=== PATIENT | female | born 1990 ===

== ENCOUNTER 2019-09-17 22:16 | Outpatient (AMB) | payer MEDICAID, SELFPAY ==
--- NOTE | 2019-09-17 22:53 | UCVISIT ---
Intake Ht./Wt. Decline/Exclusions Patient Declined Height and Weight this visit: No PT Meets exclusion criteria: No Vital Signs 09/17/19 22:54 09/17/19 23:32 Height 5 ft 5 in Height Method Measured Weight 80.456 kg Weight Measurement Method Standing Scale BMI 29.5 Temp 98.2 F Temp Source Oral Pulse 73 Pulse Source Monitor Respiration 16 16 BP 144/86 H Blood Pressure Source Automatic Cuff Blood Pressure Location Left Upper Arm Position Sitting Pulse Oximetry (%) 99 96 Oxygen Delivery Method Room Air Room Air Intake Zika Travel: No Been in contact w/anyone who has been Dx w/Zika Virus: No Been in contact w/anyone sick during travel outside country: No Patient >or equal to 18 years BMI outside of range 18.5-24.9: Yes Visit Reasons: UC Cough Primary Care Provider: Other,. Triage Triage Allergy / Med Rec Allergies sulfamethoxazole Allergy (Unknown, Verified 09/17/19 23:21) Rash PER [facility] trimethoprim Allergy (Unknown, Verified 09/17/19 23:21) Rash PER [facility] PMH Hx Congestive Heart Failure: No Hx Diabetes Mellitus Type 1: No Hx Diabetes Mellitus Type 2: No Hx Renal Disease: No Hx Chronic Obstructive Pulmonary Disease (COPD): No Past Medical History Reviewed and agree with Nursing documentation.: Yes Cardiac Medical History Hx Congestive Heart Failure: No Endocrine Medical History Hx Diabetes Mellitus Type 1: No Hx Diabetes Mellitus Type 2: No Genitourinary Medical History Hx Renal Disease: No Respiratory Medical History Hx COPD: No HPI Cough 29-year-old female presents to the urgent care today with complaints of a cough. Patient states is been going on since . Patient does report a history of hypertension patient denies any other associated symptoms or aggravating factors no other modifying factors patient does not appear any acute distress patient does report that she has been wheezing. Patient has no tachypnea speaks in full sentences without any difficulty. Pulmonary Results: No Data to Display Review of Systems (UC) Review of Systems All systems reviewed & no additional complaints except as documented Vital Signs: Reviewed and stable. Constitutional: No Weight Change, No Fever, No Chills, No Night Sweats, No Fatigue, No Malaise ENT/Mouth: No Hearing Changes, No Ear Pain, No Nasal Congestion, No Sinus Pain, No Hoarseness, No sore throat, No Rhinorrhea, No Swallowing Difficulty Eyes: No Eye Pain, No Swelling, No Redness, No Foreign Body, No Discharge, No Vision Changes Cardiovascular: No Chest Pain, No SOB, No PND, No Dyspnea on Exertion, No Orthopnea, No Claudication, No Edema, No Palpitations Respiratory: Cough, No Sputum, Wheezing, No Smoke Exposure Gastrointestinal: No Nausea, No Vomiting, No Diarrhea, No Constipation, No Pain, No Heartburn, No Anorexia, No Dysphagia, No Hematochezia, No Melena, No Flatulence, No Jaundice Genitourinary: No Dysmenorrhea, No DUB, No Dyspareunia, No Dysuria, No Urinary Frequency, No Hematuria, No Urinary Incontinence, No Urgency, No Flank Pain, No Urinary Flow Changes, No Hesitancy Musculoskeletal: No Arthralgias, No Myalgias, No Joint Swelling, No Joint Stiffness, No Back Pain, No Neck Pain, No Injury History Skin: No Skin Lesions, No Pruritis, No Hair Changes, No Breast/Skin Changes, No Nipple Discharge Neuro: No Weakness, No Numbness, No Paresthesia?s, No Loss of Consciousness, No Syncope, No Dizziness, No Headache, No Coordination Changes, No Recent Falls Psych: No Anxiety/Panic, No Depression, No Insomnia, No Personality Changes, No Delusions, No Rumination, No SI/HI/AH/VH, No Social Issues, No Memory Changes, No Violence/Abuse Hx., No Eating Concerns Heme/Lymph: No Bruising, No Bleeding, No Transfusions History, No Lymphadenopathy Endocrine: No Polyuria, No Polydipsia, No Temperature Intolerance Exam (UC) Limitations: no limitations General Appearance: alert, in no apparent distress, comfortable, cooperative, healthy appearing, well developed and well groomed Head exam: atraumatic, normocephalic and normal inspection Eye exam: Reports normal appearance and Reports EOMI ENT exam: Present normal exam, normal external ear exam, TM's normal bilaterally, normal oropharynx and mucous membranes moist Neck Exam: Present normal inspection, non-tender, trachea midline and supple Chest/Breast Exam: Present normal inspection and symmetric chest wall rise SPO2%: 99% SPO2 type: Room Air SPO2% Normal/Abnormal: Normal Respiratory exam: Present normal lung sounds bilaterally, normal respiratory effort, able to speak in complete sentences and clear to ascultation bilaterally Cardiovascular exam: Present regular rate and regular rhythm Abdominal Exam: Present non-tender, non-distended, normal bowel sounds and soft Extremities exam: normal inspection Back exam: Present normal inspection Neurological Exam: Present alert, awake and oriented X3 Psychiatric exam: Present normal affect and normal mood Skin exam: Present warm, dry, intact and normal color Office Procedures UC Airway Inhalation Treatment Respiration Respiratory Rate: 16 Respiratory Depth: Normal Respiratory Effort: Short of Breath Respiratory Pattern: Normal Oxygen Pulse Oximetry: 96 Oxygen Delivery Method: Room Air Breath Sounds Breath Sounds: Clear and Diminished Nebulizer Treatment Nebulizer Delivery Device: Mouthpiece Respiratory Treatment Tolerance: Excellent Post Treatment Aeration: Improved UC Level of Care Nursing/Assessment/Reassessment Patient Status: Established Patient Nursing Assessment/Reassessment: Triage Asessment, Initial Vital Signs, RN General Assessments and Oxygen Administration Coordination of Care: DC Instructions Simple 1-2 sets Miscellaneous Interventions: SVN Tx by ED staff Established Patient Charge Established Patient Point Assignment: 60 Established Patient Point Assignment: EP Level 2 (40-75) Procedures: Pulse Ox reading: Yes SVN Tx by ED staff: Yes UC Oxygen Delivery: Yes Office Meds sodium chloride Performing Provider: Laurent Miranda (PA), MANAGER PUBLIC Administered by: Kenny Holguin RN on 09/17/19 23:31 Dose Route Admin Location Lot Number Expiration Date [facility] [place] Machine Applicator Cementer 3 % inhalation albuterol sulfate concentrate Performing Provider: Laurent Miranda (PA) MANAGER PUBLIC Administered by: Kenny Holguin RN on 09/17/19 23:31 Dose Route Admin Location Lot Number Expiration Date [facility] [place] Machine Applicator Cementer 2.5 mg inhalation ipratropium bromide Performing Provider: Laurent Miranda (PA) MANAGER PUBLIC Administered by: Kenny Holguin RN on 09/17/19 23:31 Dose Route Admin Location Lot Number Expiration Date [facility] [place]NOTE 2] Machine Applicator Cementer 2.5 mL inhalation dexamethasone sodium phosphate Performing Provider: Laurent Miranda (PA) MANAGER PUBLIC Administered by: Kenny Holguin RN on 09/17/19 23:30 Dose Route Admin Location Lot Number Expiration Date [facility] Machine [employer]ator Cementer 10 mg PO Supplemental Info As the patient does appear to have mild wheezing patient given 1 breathing treatment as well as Decadron in the urgent care Patient discharged home in no distress to follow-up primary care doctor next 24-48 any worsening symptoms to go to the ER immediately. Assessment and Plan Assessment & Plan (1) Cough: Plan Details Other Medications: New: prednisone 30 mg (3 x 10 mg) PO BID 3 days 18 tabs 0RF albuterol sulfate HFA 90 mcg/actuation (Ventolin HFA) 2 puffs inhalation QID PRN 8.5 grams 0RF shortness of breath Discontinued: dexamethasone sodium phosphate Discontinued Reason: Office Medication has been Documented as given 10 mg PO ONCE 1 mL 0RF sodium chloride 3% Discontinued Reason: Office Medication has been Documented as given 3 % inhalation ONCE 3 mL 0RF ipratropium bromide Discontinued Reason: Office Medication has been Documented as given 2.5 mL inhalation ONCE 2.5 mL 0RF albuterol sulfate concentrate Discontinued Reason: Office Medication has been Documented as given 2.5 mg (0.5 mL) inhalation ONCE 1 ea 0RF Other Orders: Orders: UC Airway Inhalation Treatment Today UC dexamethasone 10 mg/mL injection solution Today Primary Care Provider: Other,. Additional Information PA/[employer]AC[employer] STEMMER MACHINE Supervising Physician: Cali Driver
[2019-09-17 22:54] VITALS: BP 144/86; PULSE 73; RESP 16; TEMP 36.8; O2SAT 99; BMI 29.5
[2019-09-17 23:32] VITALS: RESP 16; O2SAT 96
== END 2019-09-17 23:30 | disposition home or self-care (01) ==
PROVIDERS: PCP Family Medicine; Referring Provider Family Medicine; Visit Provider Nurse Practitioner Primary Care

== ENCOUNTER 2025-01-19 13:55 | Outpatient (AMB) | payer OTHER, MEDICAID, SELFPAY ==
--- NOTE | 2025-01-19 14:02 | AMB.GYNCLNOT ---
Vital Signs 01/19/25 14:05 Height 1.63 m Height Method Stated Weight 109.316 kg Weight Measurement Method Standing Scale BMI 41.3 BP 152/89 H Blood Pressure Source Automatic Cuff Blood Pressure Location Left Upper Arm Position Sitting Respiration 18 Pulse 98 Pulse Source Monitor Temp 97.2 F Temp Source Oral Pulse Oximetry (%) 99 Oxygen Delivery Method Room Air Allergies/Home Meds Allergies & Medications Allergies sulfamethoxazole Allergy (Unknown, Verified 01/19/25 14:06) Rash PER [facility] trimethoprim Allergy (Unknown, Verified 01/19/25 14:06) Rash PER [facility] Medication Reconciliation benazepril 5 mg tablet 5 mg PO QDAY 01/06/19 [History Confirmed 01/19/25] carvedilol 3.125 mg tablet 3.125 mg PO DAILY 01/06/19 [History Confirmed 01/19/25] albuterol sulfate 90 mcg/actuation aerosol inhaler (Ventolin HFA) 2 puff inhalation QID PRN shortness of breath #8.5 grams 09/17/19 [Rx Confirmed 01/19/25] Intake Visit Data Collection New Patient or Established: New Patient not seen in past 3 years at [facility] (considered New) Reason for Visit:: left breast mass Seen by Clinical Staff ONLY (RN/MA): No Flatbed Driver Required: No Do You Feel Safe at Home: Yes Authorities Contacted: N/A PCP or OBGYN visit in last 3 months: No Hx Now: No Are you currently on any form of Control: Yes Pain Present Currently: No Pain Scale Used: Trevino-Gupta/Numerical Pain scale:: 0 Smoking Status Smoking Status: Never smoker 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 1. Little interest or pleasure in doing things: not at all 2. Feeling down, depressed, or hopeless: not at all Total score: 0 PHQ-9 3. Trouble falling or staying asleep, or sleeping too much: Not at all 4. Feeling tired or having little energy: Not at all 5. Poor appetite or overeating: Not at all 6. Feeling bad about yourself - or that you are a failure or have let yourself or your family down: Not at all 7. Trouble concentrating on things, such as reading the newspaper or watching television: Not at all 8. Moving or speaking so slowly that other people could have noticed? - Or the opposite - being so fidgety or restless that you have been moving around a lot more than usual: not at all 9. Thoughts that you would be better off or of hurting yourself in some way: Not at all Total score: 0 If you checked off any problems, how difficult have these problems made it for you to do your work, take care of things at home, or get along with other people?: not difficult at all Source: Developed by Drs. Anton Go, Acacia Harris, Scott Krishnamurthy and colleagues, with an educational ila from [employer]. Depression screen completed yes Social History Living Situation History Marital Status: Lives With: Family Housing: House Tobacco History Smoking Status: Never smoker Second Hand Smoke Exposure: No Alcohol History Alcohol Intake: Never Domestic Abuse History Do You Feel Safe at Home: Yes Past Medical History Past Medical History Have you ever been diagnosed with any of the following: Cardiology Problems Congestive Heart Failure: No Hypertension: Yes Respiratory Problems Chronic Obstructive Pulmonary Disease (COPD): No Genital/Urinary Problems Renal Disease: No Endocrine Problems Diabetes Mellitus Type 1: No Diabetes Mellitus Type 2: No Psychologic Problems Anxiety: Yes History of Present Illness HPI Narrative 34-year-old 1 para 1 complaining of a lump in right breast x 2 weeks. Patient reports she has not had a period in 10 years because she has been using the Mirena IUD consecutively and does not have her period. She is happy with that method. This Mirena has been in for almost 5 years. Denies PAINS. History of chronic hypertension. Patient reports that she stopped taking medication a couple years ago because she reports that when she loses weight her blood pressure is in better control. Denies social habits. Denies surgeries. She comes today because 2 weeks ago she noted that her right breast had a mass that was protruding from the lower outer quadrant of right breast. And she noticed this mass when she rubbed against it. She also noticed that the breast started to become more swollen red and tender to touch. So patient tried using warm compresses to see if that would help improve the mass and that made it worse. She denies any discharge from the breast. Today the patient feels that the breast pain has improved. She feels that the lump is smaller. And then it moved up near her right areola. Patient also complains of left breast tenderness the inner lower quadrant as well. Review of Systems Review of Systems Systems Reviewed: All systems reviewed, normal except as documented Exam Narrative Physical exam: Euthyroid. Both breasts are soft and symmetrical. Both breasts were nontender to palpation. No masses palpated in the left breast. Nipple was erect. No skin changes. No nipple discharge. Right breast palpated a 3 cm irregular shaped mass there areola, outer upper quadrant. Nipple erect. No discharge. No skin changes. No redness. General Limitations: no limitations General Appearance: alert, in no apparent distress, comfortable, cooperative, healthy appearing, well developed and well groomed Head Head exam: atraumatic, normocephalic and normal inspection Chest Chest inspection: Present normal inspection and symmetric chest wall rise Exp Chest Breast: left: mass (3 cm, irregular, mobile, non tender) Resp Respiratory exam: Present normal lung sounds bilaterally Card Cardiovascular exam: Present regular rate, normal rhythm and normal heart sounds Psych Psychiatric exam: Present normal affect and normal mood Assessment & Plan Diagnosis / Problem List (1) Bilateral mastodynia: Status: Acute (2) Left breast mass: Status: Acute Qualifiers: Breast mass location: upper outer quadrant Qualified Code(s): N63.21 - Unspecified lump in the left breast, upper outer quadrant Plan Avoid caffeine products. Vitamin E twice a day. Discussed self breast exam monthly. Schedule bilateral breast ultrasound. Good firm bra for support. Return after ultrasound for results. Additional Plan Follow Up: 2 Weeks (f/u bilateral breast sono) Office Procedures OB Clinic LOC & Office Proc's Nursing/Assessment Patient Status: Initial/New Patient OB Clinic Nursing Assessment: BP Monitoring, Medication Reconciliation, Update PMH in EMR and Vital Signs OB Clinic Coordination of Care: Consent,records obtained, informed consent, Education Simp Pt/Fam, Lab and Imaging orders and Staff clarify orders Miscellaneous Interventions: Breast Exam New Patient Charge New Patient Point Assignment: 1119 New Patient Point Charge: FIREWORKS DISPLAY SPECIALIST Level 4 ([id number])
[2025-01-19 14:05] VITALS: BP 152/89; PULSE 98; RESP 18; TEMP 36.2; O2SAT 99; BMI 41.3
== END 2025-01-19 14:19 | disposition home or self-care (01) ==
LOC: HODSOBC 13:55
PROVIDERS: PCP Advanced Practice Midwife; Referring Provider Advanced Practice Midwife; Supervising Provider Advanced Practice Midwife; Visit Provider Advanced Practice Midwife
DX: N64.4 Mastodynia (principal); N63.20 Unspecified lump in the left breast, unspecified quadrant; I10 Essential (primary) hypertension
CPT/HCPCS: 99204; G0463